=== PATIENT | female | born 1990 | race Caucasian/White ===

== ENCOUNTER 2021-11-04 04:00 | Inpatient (IN) | payer OTHER ==
[~2021-11-04] VITALS: Ht 160 cm; Wt 72.6 kg
[2021-11-04] MEDS ORDERED: PRENATAL TABLE1 EAC1 PO (04:54)
[2021-11-08] MEDS ORDERED: FAMOTIDINE20 MG (08:22)
== END 2021-11-08 22:41 | disposition designated cancer center or children's hospital (05) | DRG 806 ==
LOC: LDR 04:00 → OB/GYN 04:00
PROVIDERS: Anesthesiology Pain Medicine; ADMIT Student in an Organized Health Care Education/Training Program; ATTEND Student in an Organized Health Care Education/Training Program
PROC: 4A1HXCZ Monitoring of Products of Conception, Cardiac Rate, External Approach (ICD-10-PCS; 2021-11-04)
PROC: 10E0XZZ Delivery of Products of Conception, External Approach (ICD-10-PCS; principal; 2021-11-04 19:00)
DX: O80 Encounter for full-term uncomplicated delivery (principal); O29.5X Other complications of spinal and epidural anesthesia during pregnancy; T85.610A Breakdown (mechanical) of cranial or spinal infusion catheter, initial encounter; Z20.822 Contact with and (suspected) exposure to COVID-19; Z3A.38 38 weeks gestation of pregnancy; Z37.0 Single live birth